=== PATIENT | male | born 1955 | race Caucasian/White ===

== ENCOUNTER 2019-01-12 07:55 | Day surgery (SDC) | payer OTHER ==
[2019-01-12] MEDS ORDERED: FENTAnyl 50 MCG/ML VIAL (10:34)
[2019-01-12] MEDS ORDERED: MIDAZOLAM 1 MG/ML 2 ML INJ ×2 (10:35)
== END 2019-01-12 13:24 | disposition home or self-care (01) ==
LOC: GIL 07:55
DX: Z12.11 Encounter for screening for malignant neoplasm of colon (principal); D12.3 Benign neoplasm of transverse colon; K64.8 Other hemorrhoids; I10 Essential (primary) hypertension; E11.9 Type 2 diabetes mellitus without complications
CPT/HCPCS: 45380; 88305